=== PATIENT | female | born 1990 | race Caucasian/White ===

== ENCOUNTER 2018-05-27 22:16 | Emergency (ER) | payer OTHER ==
[~2018-05-27] VITALS: Ht 170.2 cm; Wt 117.9 kg
== END 2018-05-27 23:24 | disposition home or self-care (01) ==
LOC: ER 22:16
DX: S92.412A Displaced fracture of proximal phalanx of left great toe, initial encounter for closed fracture (principal); W22.8XXA Striking against or struck by other objects, initial encounter; Y93.89 Activity, other specified; Y92.488 Other paved roadways as the place of occurrence of the external cause; Y99.8 Other external cause status